=== PATIENT | female | born 1960 | race Two or more races ===

== ENCOUNTER 2017-06-21 21:30 | Emergency (ER) | payer OTHER ==
[~2017-06-21] VITALS: Ht 157.5 cm; Wt 72.6 kg
[2017-06-21] MEDS ORDERED: JANUVIA100 MG (21:59)
[2017-06-21] MEDS ORDERED: AVAPRO150 MG (21:59)
== END 2017-06-22 01:58 | disposition left against medical advice (07) ==
LOC: ER 21:30
DX: Z53.20 Procedure and treatment not carried out because of patient's decision for unspecified reasons (principal)

== ENCOUNTER 2017-06-23 09:43 | Emergency (ER) | payer OTHER ==
[~2017-06-23] VITALS: Ht 157.5 cm; Wt 77.1 kg
[~2017-06-23 09:43] MED LIST: AVAPRO150 MG; JANUVIA100 MG
== END 2017-06-23 13:56 | disposition home or self-care (01) ==
LOC: ER 09:43
DX: B34.9 Viral infection, unspecified (principal); J11.1 Influenza due to unidentified influenza virus with other respiratory manifestations

== ENCOUNTER 2017-12-07 07:39 | Outpatient (CLI) | payer OTHER | END 2017-12-07 07:46 | disposition home or self-care (01) | LOC: MAMO-SONO 07:39 | DX: Z12.31 Encounter for screening mammogram for malignant neoplasm of breast (principal); Z87.898 Personal history of other specified conditions; N64.89 Other specified disorders of breast ==

== ENCOUNTER 2017-12-07 10:46 | Outpatient (CLI) | payer OTHER | END 2017-12-07 11:00 | disposition home or self-care (01) | LOC: NUCLEAR 10:46 | DX: M81.0 Age-related osteoporosis without current pathological fracture (principal) ==

== ENCOUNTER 2018-06-09 10:43 | Outpatient (CLI) | payer OTHER | END 2018-06-09 10:49 | disposition home or self-care (01) | LOC: RAD 10:43 | DX: M12.851 Other specific arthropathies, not elsewhere classified, right hip (principal); M12.852 Other specific arthropathies, not elsewhere classified, left hip; M24.151 Other articular cartilage disorders, right hip; M24.152 Other articular cartilage disorders, left hip ==

== ENCOUNTER 2018-11-23 13:12 | Outpatient (CLI) | payer OTHER | END 2018-11-23 13:31 | disposition home or self-care (01) | LOC: MAMO-SONO 13:12 | DX: N64.89 Other specified disorders of breast (principal); Z12.31 Encounter for screening mammogram for malignant neoplasm of breast; Z87.898 Personal history of other specified conditions ==

== ENCOUNTER 2018-12-14 11:08 | Outpatient (CLI) | payer OTHER | END 2018-12-14 11:22 | disposition home or self-care (01) | LOC: RAD 11:08 | DX: M62.830 Muscle spasm of back (principal) ==

== ENCOUNTER 2018-12-26 15:13 | Outpatient (CLI) | payer OTHER | END 2018-12-26 15:16 | disposition home or self-care (01) | LOC: NUCLEAR 15:13 | DX: I87.2 Venous insufficiency (chronic) (peripheral) (principal); I73.9 Peripheral vascular disease, unspecified ==

== ENCOUNTER 2019-01-28 13:01 | Emergency (ER) | payer OTHER ==
[~2019-01-28] VITALS: Ht 157.5 cm; Wt 80.3 kg
== END 2019-01-28 17:22 | disposition home or self-care (01) ==
LOC: ER 13:01
DX: M25.572 Pain in left ankle and joints of left foot (principal)

== ENCOUNTER 2020-08-22 23:50 | Emergency (ER) | payer OTHER ==
[~2020-08-22] VITALS: Ht 157.5 cm; Wt 73.5 kg
[2020-08-22] MEDS ORDERED: LOTENSIN20 MG (23:58)
[2020-08-23] MEDS ORDERED: ORPHENADRINE C100 MG PO (01:03)
[2020-08-23] MEDS ORDERED: GABAPENTIN400 MG PO (01:03)
== END 2020-08-23 01:17 | disposition home or self-care (01) ==
LOC: ER 23:50
DX: M62.830 Muscle spasm of back (principal)

== ENCOUNTER 2021-04-22 13:53 | Outpatient (CLI) | payer OTHER ==
[~2021-04-22 13:53] MED LIST changes: +GABAPENTIN400 MG PO; +LOTENSIN20 MG; +ORPHENADRINE C100 MG PO
== END 2021-04-22 13:58 | disposition home or self-care (01) ==
LOC: SONOGRAMA 13:53
PROVIDERS: ATTEND Otolaryngology
DX: E04.1 Nontoxic single thyroid nodule (principal)

== ENCOUNTER 2021-04-29 07:45 | Outpatient (CLI) | payer OTHER | END 2021-04-29 07:52 | disposition home or self-care (01) | LOC: RX STUDY 07:45 | PROVIDERS: ATTEND Otolaryngology | DX: R13.19 Other dysphagia (principal) ==

== ENCOUNTER 2022-09-22 08:31 | Outpatient (CLI) | payer OTHER | END 2022-09-22 08:35 | disposition home or self-care (01) | LOC: LAB 08:31 | PROVIDERS: ATTEND Radiology Diagnostic Radiology | DX: K43.2 Incisional hernia without obstruction or gangrene (principal) ==

== ENCOUNTER 2022-10-07 07:43 | Outpatient (CLI) | payer OTHER | END 2022-10-07 07:52 | disposition home or self-care (01) | LOC: TOM 07:43 | PROVIDERS: ATTEND Orthopaedic Surgery | DX: K43.2 Incisional hernia without obstruction or gangrene (principal) | CPT/HCPCS: 74177; Q9965 ==